=== PATIENT | female | born 1995 | race Two or more races ===

== ENCOUNTER 2019-06-23 05:12 | Emergency (ER) | payer SELFPAY ==
[~2019-06-23] VITALS: Ht 160 cm; Wt 61.2 kg
[2019-06-23 05:12] VITALS: BP 118/69
--- NOTE | 2019-06-23 06:53 | NUR ---
Patient discharged to home in stable condition. Written and verbal after care instructions given. Patient verbalizes understanding of instruction.
== END 2019-06-23 06:54 | disposition home or self-care (01) ==
LOC: ER 05:12
DX: R05 Cough (principal); Z88.8 Allergy status to other drugs, medicaments and biological substances